=== PATIENT | female | born 1975 | race Caucasian/White ===

== ENCOUNTER 2021-01-25 10:08 | Inpatient (IN) ==
[2021-01-25] MEDS ORDERED: Nystatin POWDER 30 GM BOTTLE TP PRN (16:00)
[2021-01-25] MEDS ORDERED: D5% in Water 1,000 ML IVC PRN (18:28)
[2021-01-25] MEDS ORDERED: *HR* Dextrose 50 % in Water (Vial) 50 ML VIAL IVP PRN (18:28)
[2021-01-25] MEDS ORDERED: Dextrose Gel 15 GM/37.5 ML TUBE PO PRN ×2 (18:28)
[2021-01-25] MEDS: Insulin LISPRO 300 UNITS/3 ML VIAL SUBQ SCH (21:34)
[2021-01-25] MEDS: Baclofen 10 MG TABLET PO SCH (21:34)
[2021-01-25] MEDS: ARIPiprazole 10 MG TABLET PO SCH (21:34)
[2021-01-25] MEDS: Gabapentin 300 MG CAPSULE PO SCH (21:34)
[2021-01-25] MEDS: Ibuprofen 800 MG TABLET PO PRN (21:40)
[2021-01-26 05:28] LABS: Basophils # 0.1 K/mcL (0.0-0.2); Basophils % 0.7 %; Eosinophils # 0.4 K/mcL (0.0-0.6); Eosinophils % 3.6 %; Hematocrit 36.4 % (35.3-44.9); Hemoglobin 11.4 g/dL (11.5-15.4); Immature Granulocytes % 3.2 % (0-4); Lymphocytes # 1.8 K/mcL (0.6-4.6); Lymphocytes % 14.7 %; Mean Corpuscular HGB Conc 31.3 g/dL (31.6-35.5); Mean Corpuscular Hemoglobin 28.6 pg (28.0-33.3); Mean Corpuscular Volume 91.5 fL (83.0-100.0); Mean Platelet Volume 10.4 fL (9.4-12.4); Monocytes # 0.7 K/mcL (0.0-1.3); Monocytes % 5.4 %; Neutrophils # 8.9 K/mcL (1.6-8.9); Platelet Count 300 K/mcL (140-400); Red Blood Count 3.98 M/mcL (3.82-4.97); Red Cell Distribution Width 14.9 % (11.5-14.5); Segmented Neutrophils % 72.4 %; White Blood Count 12.3 K/mcL (4.3-11.1)
[2021-01-26 05:48] LABS: BUN/Creatinine Ratio 16 (6-26); Blood Urea Nitrogen 16 mg/dL (6-20); Calcium 8.4 mg/dL (8.6-10.3); Carbon Dioxide 28 mEq/L (23-29); Chloride 103 mEq/L (98-107); Glucose 132 mg/dL (70-105); Osmolality,Calculated 291 (280-300); Potassium 3.9 mEq/L (3.5-5.1); Sodium 139 mEq/L (136-145); eGFR For African Americans > 60 (> 60); eGFR For Non-African Americans 60 (> 60)
[2021-01-26] MEDS: *HR* Enoxaparin 40 MG/0.4 ML SYRINGE SQ SCH (06:09)
[2021-01-26] MEDS: Insulin LISPRO 300 UNITS/3 ML VIAL SUBQ SCH ×4 (08:51→20:46)
[2021-01-26] MEDS: Ascorbic Acid 500 MG TABLET PO SCH (08:52)
[2021-01-26] MEDS: Baclofen 10 MG TABLET PO SCH ×3 (08:52→20:52)
[2021-01-26] MEDS: Fluconazole 100 MG TABLET PO SCH (08:52)
[2021-01-26] MEDS: Cyanocobalamin (B-12) 1,000 MCG TABLET PO SCH (08:52)
[2021-01-26] MEDS: Magnesium Oxide 400 MG TABLET PO SCH (08:52)
[2021-01-26] MEDS: Cholecalciferol (D-3) 1,000 UNIT (25MCG) TABLET PO SCH (08:52)
[2021-01-26] MEDS: Niacin (24 HR) 500 MG TAB.ER.24H PO SCH (08:53)
[2021-01-26] MEDS: Ertapenem 1,000 MG in 0.9 % Sodium Chloride Mini Bag 100 ML IVPB SCH (08:53)
[2021-01-26] MEDS: Loratadine 10 MG TABLET PO SCH (08:53)
[2021-01-26] MEDS: Ibuprofen 800 MG TABLET PO PRN ×2 (09:22→20:53)
[2021-01-26] MEDS ORDERED: Thiamine (B-1) 200 MG/2 ML VIAL IM SCH (14:45)
[2021-01-26] MEDS: Thiamine (B-1) 200 MG/2 ML VIAL IM SCH (18:20)
[2021-01-26] MEDS: Acetaminophen 325 MG TABLET PO PRN (19:14)
[2021-01-26] MEDS: Gabapentin 300 MG CAPSULE PO SCH (20:52)
[2021-01-26] MEDS: ARIPiprazole 10 MG TABLET PO SCH (20:53)
[2021-01-27] MEDS: *HR* Enoxaparin 40 MG/0.4 ML SYRINGE SQ SCH (05:19)
[2021-01-27] MEDS: Thiamine (B-1) 200 MG/2 ML VIAL IM SCH (08:27)
[2021-01-27] MEDS: Insulin LISPRO 300 UNITS/3 ML VIAL SUBQ SCH ×4 (08:28→20:02)
[2021-01-27] MEDS: Ertapenem 1,000 MG in 0.9 % Sodium Chloride Mini Bag 100 ML IVPB SCH (08:29)
[2021-01-27] MEDS: Ascorbic Acid 500 MG TABLET PO SCH (08:30)
[2021-01-27] MEDS: Niacin (24 HR) 500 MG TAB.ER.24H PO SCH (08:30)
[2021-01-27] MEDS: Magnesium Oxide 400 MG TABLET PO SCH (08:30)
[2021-01-27] MEDS: Cholecalciferol (D-3) 1,000 UNIT (25MCG) TABLET PO SCH (08:31)
[2021-01-27] MEDS: Loratadine 10 MG TABLET PO SCH (08:31)
[2021-01-27] MEDS: Cyanocobalamin (B-12) 1,000 MCG TABLET PO SCH (08:31)
[2021-01-27] MEDS: Baclofen 10 MG TABLET PO SCH ×3 (08:31→20:55)
[2021-01-27] MEDS: Fluconazole 100 MG TABLET PO SCH (08:31)
[2021-01-27] MEDS: Ibuprofen 800 MG TABLET PO PRN ×2 (08:31→20:55)
[2021-01-27] MEDS: Acetaminophen 325 MG TABLET PO PRN (12:48)
[2021-01-27] MEDS: ARIPiprazole 10 MG TABLET PO SCH (20:55)
[2021-01-27] MEDS: Gabapentin 300 MG CAPSULE PO SCH (20:56)
[2021-01-28] MEDS: *HR* Enoxaparin 40 MG/0.4 ML SYRINGE SQ SCH (05:48)
[2021-01-28] MEDS: Insulin LISPRO 300 UNITS/3 ML VIAL SUBQ SCH ×4 (07:56→20:23)
[2021-01-28] MEDS: Ertapenem 1,000 MG in 0.9 % Sodium Chloride Mini Bag 100 ML IVPB SCH (08:11)
[2021-01-28] MEDS: Loratadine 10 MG TABLET PO SCH (08:17)
[2021-01-28] MEDS: Niacin (24 HR) 500 MG TAB.ER.24H PO SCH (08:17)
[2021-01-28] MEDS: Cholecalciferol (D-3) 1,000 UNIT (25MCG) TABLET PO SCH (08:17)
[2021-01-28] MEDS: Ascorbic Acid 500 MG TABLET PO SCH (08:17)
[2021-01-28] MEDS: Magnesium Oxide 400 MG TABLET PO SCH (08:17)
[2021-01-28] MEDS: Fluconazole 100 MG TABLET PO SCH (08:18)
[2021-01-28] MEDS: Ibuprofen 800 MG TABLET PO PRN ×2 (08:18→20:22)
[2021-01-28] MEDS: Cyanocobalamin (B-12) 1,000 MCG TABLET PO SCH (08:19)
[2021-01-28] MEDS: Baclofen 10 MG TABLET PO SCH ×3 (08:19→20:22)
[2021-01-28] MEDS: Acetaminophen 325 MG TABLET PO PRN (13:59)
[2021-01-28] MEDS: Thiamine (B-1) 200 MG/2 ML VIAL IM SCH (14:00)
[2021-01-28] MEDS: ARIPiprazole 10 MG TABLET PO SCH (20:22)
[2021-01-28] MEDS: Gabapentin 300 MG CAPSULE PO SCH (20:22)
[2021-01-29] MEDS ORDERED: Ondansetron 4 MG/2 ML VIAL IVP PRN
[2021-01-29] MEDS: *HR* Enoxaparin 40 MG/0.4 ML SYRINGE SQ SCH (04:40)
[2021-01-29] MEDS: Acetaminophen 325 MG TABLET PO PRN ×2 (04:40→12:21)
[2021-01-29 06:32] LABS: Hematocrit 39.9 % (35.3-44.9); Hemoglobin 12.6 g/dL (11.5-15.4); Mean Corpuscular HGB Conc 31.6 g/dL (31.6-35.5); Mean Corpuscular Hemoglobin 28.6 pg (28.0-33.3); Mean Corpuscular Volume 90.7 fL (83.0-100.0); Mean Platelet Volume 10.3 fL (9.4-12.4); Platelet Count 393 K/mcL (140-400); Red Cell Distribution Width 14.9 % (11.5-14.5)
[2021-01-29 06:54] LABS: Alanine Aminotransferase 58 Units/L (7-52); Albumin 3.3 g/dL (3.5-5.7); Albumin/Globulin Ratio 0.7 (1.1-2.2); Alkaline Phosphatase 149 Units/L (34-104); Aspartate Amino Transferase 21 Units/L (13-39); BUN/Creatinine Ratio 18 (6-26); Bilirubin,Total 0.4 mg/dL (0.3-1.0); Blood Urea Nitrogen 20 mg/dL (6-20); Calcium 9.2 mg/dL (8.6-10.3); Carbon Dioxide 29 mEq/L (23-29); Chloride 98 mEq/L (98-107); Globulin 4.5 g/dL (2.4-3.5); Glucose 179 mg/dL (70-105); Osmolality,Calculated 287 (280-300); Potassium 4.7 mEq/L (3.5-5.1); Sodium 135 mEq/L (136-145); Total Protein 7.8 g/dL (6.4-8.9); eGFR For African Americans > 60 (> 60); eGFR For Non-African Americans 54 (> 60)
[2021-01-29] MEDS: Insulin LISPRO 300 UNITS/3 ML VIAL SUBQ SCH ×4 (08:25→21:28)
[2021-01-29] MEDS: Fluconazole 100 MG TABLET PO SCH (08:27)
[2021-01-29] MEDS: Niacin (24 HR) 500 MG TAB.ER.24H PO SCH (08:28)
[2021-01-29] MEDS: Cholecalciferol (D-3) 1,000 UNIT (25MCG) TABLET PO SCH (08:28)
[2021-01-29] MEDS: Ascorbic Acid 500 MG TABLET PO SCH (08:28)
[2021-01-29] MEDS: Cyanocobalamin (B-12) 1,000 MCG TABLET PO SCH (08:28)
[2021-01-29] MEDS: Loratadine 10 MG TABLET PO SCH (08:29)
[2021-01-29] MEDS: Magnesium Oxide 400 MG TABLET PO SCH (08:29)
[2021-01-29] MEDS: Baclofen 10 MG TABLET PO SCH ×3 (08:29→21:26)
[2021-01-29] MEDS: Thiamine (B-1) 200 MG/2 ML VIAL IM SCH ×2 (08:29→10:21)
[2021-01-29] MEDS: Ertapenem 1,000 MG in 0.9 % Sodium Chloride Mini Bag 100 ML IVPB SCH (08:35)
[2021-01-29] MEDS: ARIPiprazole 10 MG TABLET PO SCH (21:26)
[2021-01-29] MEDS: Gabapentin 300 MG CAPSULE PO SCH (21:26)
[2021-01-29] MEDS: Ibuprofen 800 MG TABLET PO PRN (22:24)
[2021-01-30] MEDS: *HR* Enoxaparin 40 MG/0.4 ML SYRINGE SQ SCH (06:37)
[2021-01-30] MEDS: Ertapenem 1,000 MG in 0.9 % Sodium Chloride Mini Bag 100 ML IVPB SCH (09:37)
[2021-01-30] MEDS: Ascorbic Acid 500 MG TABLET PO SCH (09:39)
[2021-01-30] MEDS: Fluconazole 100 MG TABLET PO SCH (09:39)
[2021-01-30] MEDS: Cholecalciferol (D-3) 1,000 UNIT (25MCG) TABLET PO SCH (09:39)
[2021-01-30] MEDS: Loratadine 10 MG TABLET PO SCH (09:40)
[2021-01-30] MEDS: Magnesium Oxide 400 MG TABLET PO SCH (09:40)
[2021-01-30] MEDS: Ibuprofen 800 MG TABLET PO PRN ×2 (09:40→20:38)
[2021-01-30] MEDS: Baclofen 10 MG TABLET PO SCH ×3 (09:41→20:38)
[2021-01-30] MEDS: Niacin (24 HR) 500 MG TAB.ER.24H PO SCH (09:41)
[2021-01-30] MEDS: Cyanocobalamin (B-12) 1,000 MCG TABLET PO SCH (09:41)
[2021-01-30] MEDS: Thiamine (B-1) 200 MG/2 ML VIAL IM SCH (09:43)
[2021-01-30] MEDS: Insulin LISPRO 300 UNITS/3 ML VIAL SUBQ SCH ×4 (09:43→20:38)
[2021-01-30] MEDS: Acetaminophen 325 MG TABLET PO PRN (15:20)
[2021-01-30] MEDS: Gabapentin 300 MG CAPSULE PO SCH (20:38)
[2021-01-30] MEDS: ARIPiprazole 10 MG TABLET PO SCH (20:38)
[2021-01-31] MEDS: Ertapenem 1,000 MG in 0.9 % Sodium Chloride Mini Bag 100 ML IVPB SCH (09:19)
[2021-01-31] MEDS: *HR* Enoxaparin 40 MG/0.4 ML SYRINGE SQ SCH (09:20)
[2021-01-31] MEDS: Loratadine 10 MG TABLET PO SCH (09:21)
[2021-01-31] MEDS: Cyanocobalamin (B-12) 1,000 MCG TABLET PO SCH (09:21)
[2021-01-31] MEDS: Ibuprofen 800 MG TABLET PO PRN ×2 (09:21→23:46)
[2021-01-31] MEDS: Cholecalciferol (D-3) 1,000 UNIT (25MCG) TABLET PO SCH (09:21)
[2021-01-31] MEDS: Magnesium Oxide 400 MG TABLET PO SCH (09:22)
[2021-01-31] MEDS: Thiamine (B-1) 200 MG/2 ML VIAL IM SCH (09:22)
[2021-01-31] MEDS: Fluconazole 100 MG TABLET PO SCH (09:23)
[2021-01-31] MEDS: Ascorbic Acid 500 MG TABLET PO SCH (09:23)
[2021-01-31] MEDS: Niacin (24 HR) 500 MG TAB.ER.24H PO SCH (09:24)
[2021-01-31] MEDS: Baclofen 10 MG TABLET PO SCH ×3 (09:24→23:46)
[2021-01-31] MEDS: Insulin LISPRO 300 UNITS/3 ML VIAL SUBQ SCH ×3 (17:46→23:46)
[2021-01-31] MEDS: Acetaminophen 325 MG TABLET PO PRN (18:00)
[2021-01-31] MEDS: Gabapentin 300 MG CAPSULE PO SCH (23:46)
[2021-01-31] MEDS: ARIPiprazole 10 MG TABLET PO SCH (23:46)
[2021-02-01] MEDS: *HR* Enoxaparin 40 MG/0.4 ML SYRINGE SQ SCH (04:54)
[2021-02-01] MEDS: Insulin LISPRO 300 UNITS/3 ML VIAL SUBQ SCH ×4 (08:34→21:47)
[2021-02-01] MEDS: Ascorbic Acid 500 MG TABLET PO SCH (08:56)
[2021-02-01] MEDS: Cyanocobalamin (B-12) 1,000 MCG TABLET PO SCH (08:57)
[2021-02-01] MEDS: Ibuprofen 800 MG TABLET PO PRN ×2 (08:57→21:48)
[2021-02-01] MEDS: Cholecalciferol (D-3) 1,000 UNIT (25MCG) TABLET PO SCH (08:57)
[2021-02-01] MEDS: Baclofen 10 MG TABLET PO SCH ×3 (08:57→21:48)
[2021-02-01] MEDS: Magnesium Oxide 400 MG TABLET PO SCH (08:57)
[2021-02-01] MEDS: Fluconazole 100 MG TABLET PO SCH (08:57)
[2021-02-01] MEDS: Niacin (24 HR) 500 MG TAB.ER.24H PO SCH (08:57)
[2021-02-01] MEDS: Loratadine 10 MG TABLET PO SCH (08:57)
[2021-02-01] MEDS: Thiamine (B-1) 200 MG/2 ML VIAL IM SCH (08:58)
[2021-02-01] MEDS: Ertapenem 1,000 MG in 0.9 % Sodium Chloride Mini Bag 100 ML IVPB SCH (08:58)
[2021-02-01] MEDS: Acetaminophen 325 MG TABLET PO PRN (12:56)
[2021-02-01] MEDS: ARIPiprazole 10 MG TABLET PO SCH (21:48)
[2021-02-01] MEDS: Gabapentin 300 MG CAPSULE PO SCH (21:48)
[2021-02-02] MEDS: *HR* Enoxaparin 40 MG/0.4 ML SYRINGE SQ SCH (04:19)
[2021-02-02] MEDS: Magnesium Oxide 400 MG TABLET PO SCH (08:54)
[2021-02-02] MEDS: Ascorbic Acid 500 MG TABLET PO SCH (08:54)
[2021-02-02] MEDS: Cyanocobalamin (B-12) 1,000 MCG TABLET PO SCH (08:54)
[2021-02-02] MEDS: Ibuprofen 800 MG TABLET PO PRN ×2 (08:54→20:58)
[2021-02-02] MEDS: Cholecalciferol (D-3) 1,000 UNIT (25MCG) TABLET PO SCH (08:54)
[2021-02-02] MEDS: Loratadine 10 MG TABLET PO SCH (08:55)
[2021-02-02] MEDS: Baclofen 10 MG TABLET PO SCH ×3 (08:55→20:58)
[2021-02-02] MEDS: Fluconazole 100 MG TABLET PO SCH (08:55)
[2021-02-02] MEDS: Niacin (24 HR) 500 MG TAB.ER.24H PO SCH (08:55)
[2021-02-02] MEDS: Ertapenem 1,000 MG in 0.9 % Sodium Chloride Mini Bag 100 ML IVPB SCH (08:55)
[2021-02-02] MEDS: Thiamine (B-1) 200 MG/2 ML VIAL IM SCH (08:55)
[2021-02-02] MEDS: Insulin LISPRO 300 UNITS/3 ML VIAL SUBQ SCH ×4 (08:59→20:58)
[2021-02-02] MEDS: Acetaminophen 325 MG TABLET PO PRN (12:19)
[2021-02-02] MEDS: Gabapentin 300 MG CAPSULE PO SCH (20:57)
[2021-02-02] MEDS: ARIPiprazole 10 MG TABLET PO SCH (20:58)
[2021-02-03] MEDS: *HR* Enoxaparin 40 MG/0.4 ML SYRINGE SQ SCH (05:58)
[2021-02-03] MEDS: Niacin (24 HR) 500 MG TAB.ER.24H PO SCH (09:01)
[2021-02-03] MEDS: Cyanocobalamin (B-12) 1,000 MCG TABLET PO SCH (09:01)
[2021-02-03] MEDS: Loratadine 10 MG TABLET PO SCH (09:01)
[2021-02-03] MEDS: Cholecalciferol (D-3) 1,000 UNIT (25MCG) TABLET PO SCH (09:01)
[2021-02-03] MEDS: Ascorbic Acid 500 MG TABLET PO SCH (09:01)
[2021-02-03] MEDS: Fluconazole 100 MG TABLET PO SCH (09:02)
[2021-02-03] MEDS: Baclofen 10 MG TABLET PO SCH ×3 (09:02→22:31)
[2021-02-03] MEDS: Magnesium Oxide 400 MG TABLET PO SCH (09:02)
[2021-02-03] MEDS: Thiamine (B-1) 200 MG/2 ML VIAL IM SCH (09:02)
[2021-02-03] MEDS: Ertapenem 1,000 MG in 0.9 % Sodium Chloride Mini Bag 100 ML IVPB SCH (09:03)
[2021-02-03] MEDS: Insulin LISPRO 300 UNITS/3 ML VIAL SUBQ SCH ×4 (09:13→22:32)
[2021-02-03] MEDS: Acetaminophen 325 MG TABLET PO PRN (12:29)
[2021-02-03] MEDS: Gabapentin 300 MG CAPSULE PO SCH (22:31)
[2021-02-03] MEDS: ARIPiprazole 10 MG TABLET PO SCH (22:31)
[2021-02-03] MEDS: Ibuprofen 800 MG TABLET PO PRN (22:41)
[2021-02-04 05:05] LABS: Hematocrit 36.6 % (35.3-44.9); Hemoglobin 11.5 g/dL (11.5-15.4); Mean Corpuscular HGB Conc 31.4 g/dL (31.6-35.5); Mean Corpuscular Hemoglobin 28.5 pg (28.0-33.3); Mean Corpuscular Volume 90.8 fL (83.0-100.0); Mean Platelet Volume 10.1 fL (9.4-12.4); Platelet Count 407 K/mcL (140-400); Red Blood Count 4.03 M/mcL (3.82-4.97); Red Cell Distribution Width 14.9 % (11.5-14.5); White Blood Count 7.1 K/mcL (4.3-11.1)
[2021-02-04 05:24] LABS: BUN/Creatinine Ratio 24 (6-26); Blood Urea Nitrogen 22 mg/dL (6-20); Calcium 9.1 mg/dL (8.6-10.3); Carbon Dioxide 26 mEq/L (23-29); Chloride 102 mEq/L (98-107); Glucose 183 mg/dL (70-105); Magnesium 1.8 mg/dL (1.6-2.6); Osmolality,Calculated 292 (280-300); Potassium 4.2 mEq/L (3.5-5.1); Sodium 137 mEq/L (136-145); eGFR For African Americans > 60 (> 60); eGFR For Non-African Americans > 60 (> 60)
[2021-02-04] MEDS: *HR* Enoxaparin 40 MG/0.4 ML SYRINGE SQ SCH (05:30)
[2021-02-04 07:30] VITALS: BP 147/81
[2021-02-04] MEDS: Insulin LISPRO 300 UNITS/3 ML VIAL SUBQ SCH ×2 (08:00→12:22)
[2021-02-04] MEDS: Ertapenem 1,000 MG in 0.9 % Sodium Chloride Mini Bag 100 ML IVPB SCH (09:55)
[2021-02-04] MEDS: Loratadine 10 MG TABLET PO SCH (09:59)
[2021-02-04] MEDS: Niacin (24 HR) 500 MG TAB.ER.24H PO SCH (09:59)
[2021-02-04] MEDS: Cyanocobalamin (B-12) 1,000 MCG TABLET PO SCH (09:59)
[2021-02-04] MEDS: Magnesium Oxide 400 MG TABLET PO SCH (09:59)
[2021-02-04] MEDS: Cholecalciferol (D-3) 1,000 UNIT (25MCG) TABLET PO SCH (09:59)
[2021-02-04] MEDS: Baclofen 10 MG TABLET PO SCH (09:59)
[2021-02-04] MEDS: Ascorbic Acid 500 MG TABLET PO SCH (09:59)
[2021-02-04] MEDS: Thiamine (B-1) 200 MG/2 ML VIAL IM SCH (09:59)
[2021-02-04] MEDS: Fluconazole 100 MG TABLET PO SCH (09:59)
[2021-02-04] MEDS: Ibuprofen 800 MG TABLET PO PRN (10:13)
== END 2021-02-04 14:12 | disposition home health service (06) | DRG 949 ==
LOC: INPGRE 16:29
PROVIDERS: ADMIT Family Medicine; ATTEND Family Medicine